=== PATIENT | male | born 1995 | race Caucasian/White ===

== ENCOUNTER 2024-06-15 19:28 | Emergency (ER) | payer BC, OTHER ==
[~2024-06-15] VITALS: Ht 177.8 cm; Wt 77.1 kg
[2024-06-15 21:13] VITALS: BP 112/71; TEMP 98
[2024-06-15] MEDS ORDERED: TDAP [DIPH/PERTUSSIS/TET] 0.5 ML VIAL IM ONE (21:20)
[2024-06-15] MEDS: TDAP [DIPH/PERTUSSIS/TET] 0.5 ML VIAL IM ONE (21:25)
[2024-06-15 21:37] VITALS: O2SAT 99
== END 2024-06-15 21:37 | disposition home or self-care (01) ==
LOC: ER 19:30
DX: S61.012A Laceration without foreign body of left thumb without damage to nail, initial encounter (principal); W26.0XXA Contact with knife, initial encounter; Y93.89 Activity, other specified; Y92.098 Other place in other non-institutional residence as the place of occurrence of the external cause; Y99.8 Other external cause status
CPT/HCPCS: 90715